=== PATIENT | male | born 1960 | race Caucasian/White ===

== ENCOUNTER 2018-10-27 19:25 | Observation (INO) | payer BC ==
[2018-10-27 20:28] VITALS: RESP 18
[2018-10-27 21:21] LABS: Basophils % (A) 0 %; Eosinophils # (A) 0.2 k/uL (0-0.7); Eosinophils % (A) 2 %; HCT 49.8 % (39.0-53.0); HGB 16.8 gm/dL (13.0-17.5); Lymphocytes % (A) 19 %; MCH 31.6 pg (25.0-35.0); MCHC 33.8 g/dL (31.0-37.0); MCV 93.7 fL (80.0-100.0); Mean Platelet Volume 6.5; Monocytes # (A) 0.7 k/uL (0-1.0); Monocytes % (A) 6 %; Neutrophils # (A) 7.4 k/uL (1.3-7.7); Neutrophils % (A) 70 %; Platelet Count 227 k/uL (150-450); RBC 5.32 m/uL (4.30-5.90); RDW 12.6 % (11.5-15.5); WBC 10.5 k/uL (3.8-10.6)
[2018-10-27 21:30] LABS: Appearance,Urine Clear (Clear); Bilirubin,Urine Negative (Negative); Blood,Urine Negative (Negative); Color,Urine Yellow; Glucose,Urine (UA) Negative (Negative); Ketones,Urine Trace (Negative); Leukocyte Esterase,Urine Negative (Negative); Nitrite,Urine Negative (Negative); PH, Urine 5.5 (5.0-8.0); Protein,Urine Trace (Negative); Specific Gravity,Urine 1.021 (1.001-1.035); Urobilinogen,Urine <2.0 mg/dL (<2.0)
[2018-10-27 21:31] LABS: ALT 18 U/L (21-72); AST 22 U/L (17-59); Albumin 4.3 g/dL (3.5-5.0); Alkaline Phosphatase 75 U/L (38-126); Anion Gap 10 mmol/L; Blood Urea Nitrogen 13 mg/dL (9-20); Calcium 9.7 mg/dL (8.4-10.2); Carbon Dioxide 23 mmol/L (22-30); Chloride 105 mmol/L (98-107); Glucose 114 mg/dL (74-99); Potassium 4.2 mmol/L (3.5-5.1); Sodium 138 mmol/L (137-145); Total Bilirubin 1.2 mg/dL (0.2-1.3); Total Protein 7.9 g/dL (6.3-8.2)
[2018-10-27] MEDS ORDERED: MORPHINE SULFATE 4 MG/ML SYRINGE IV STA (21:53)
[2018-10-27] MEDS ORDERED: KETOROLAC 30 MG/ML 1 ML VIAL IVP STA (21:53)
[2018-10-27] MEDS ORDERED: HYDROmorphone 1 MG/ML 1 ML SYRINGE IVP STA ×2 (22:25→23:58)
--- NOTE | 2018-10-27 22:29 | ED ---
Abdominal Pain HPI - General Chief Complaint: Abdominal Pain Stated Complaint: Lt kidney area pain Time Seen by Provider: 10/27/18 21:51 Source: patient, family Mode of arrival: ambulatory Limitations: no limitations - History of Present Illness Initial Comments: This patient is a 57-year-old man complains of left flank pain that woke him from sleep early this morning. States it feels "like someone is sticking a knife and then twisting it." Pain is constant, severe, and gets worse when he moves. He has not noted relieving factors other than remaining still. No nausea or vomiting. No change in bowel movements. No change in urination. Occasionally the pain feels like it goes toward his left testicle. MD Complaint: flank pain Onset/Timin -: hour(s) Location: L flank Radiation: other (groin) Migration to: no migration Severity: severe Quality: stabbing Consistency: constant Improves With: nothing Worsens With: movement Associated Symptoms: denies other symptoms - Related Data Home Medications Medication Instructions Recorded Confirmed Acetaminophen [Tylenol Extra 1,000 - 1,500 mg PO Q6H PRN 10/27/18 10/27/18 Strength] Previous Rx's Medication Instructions Recorded Ibuprofen [Motrin] 400 mg PO Q6HR PRN #30 tab 10/28/18 Ranitidine HCl [Zantac] 150 mg PO BID #60 tab 10/28/18 Allergies Allergy/AdvReac Type Severity Reaction Status Date / Time Penicillins Allergy Swelling Verified 10/27/18 20:50 Review of Systems ROS Statement: Those systems with pertinent positive or pertinent negative responses have been documented in the HPI. ROS Other: All systems not noted in ROS Statement are negative. Constitutional: Denies: fever, chills, weakness Respiratory: Denies: cough, dyspnea Cardiovascular: Denies: chest pain, palpitations, edema Gastrointestinal: Reports: as per HPI, abdominal pain (Left flank). Denies: vomiting, diarrhea, constipation, melena, hematochezia Genitourinary: Denies: dysuria, hematuria Musculoskeletal: Denies: back pain Skin: Denies: rash Neurological: Denies: headache, weakness, numbness Past Medical History Past Medical History: No Reported History History of Any Multi-Drug Resistant Organisms: None Reported Past Surgical History: No Surgical Hx Reported Past Psychological History: No Psychological Hx Reported Smoking Status: Current every day smoker Past Alcohol Use History: Daily Past Drug Use History: Marijuana General Exam Limitations: no limitations General appearance: alert, in no apparent distress Head exam: Present: atraumatic, normocephalic Eye exam: Present: normal appearance. Absent: scleral icterus, conjunctival injection ENT exam: Present: normal oropharynx Respiratory exam: Present: normal lung sounds bilaterally. Absent: respiratory distress, wheezes, rales, rhonchi, stridor Cardiovascular Exam: Present: regular rate, normal rhythm, normal heart sounds, other (Pedal pulses are symmetric and normal in strength.). Absent: systolic murmur, diastolic murmur, rubs, gallop GI/Abdominal exam: Present: soft, normal bowel sounds. Absent: distended, tenderness, guarding, rebound, rigid, mass, pulsatile mass, hernia Extremities exam: Present: normal inspection, normal capillary refill. Absent: pedal edema, calf tenderness Back exam: Present: normal inspection, tenderness, paraspinal tenderness, other (The patient does have tenderness that reproduces the pain in the left paraspinal area at the costal margin.). Absent: CVA tenderness (R), CVA tenderness (L) Neurological exam: Present: alert, reflexes normal. Absent: motor sensory deficit Skin exam: Present: warm, dry, intact, normal color. Absent: rash Course Vital Signs 10/27/18 10/27/18 10/28/18 20:22 23:56 01:10 Temperature 97.5 F L 97.6 F Pulse Rate 85 67 Pulse Rate [ 67 Pulse Oximetery ] Respiratory 18 18 18 Rate Blood Pressure 127/86 130/77 Blood Pressure 125/68 [Right Arm] O2 Sat by Pulse 99 97 95 Oximetry 10/28/18 01:16 Temperature 97.8 F Pulse Rate 68 Pulse Rate [ Pulse Oximetery ] Respiratory 18 Rate Blood Pressure 128/64 Blood Pressure [Right Arm] O2 Sat by Pulse 96 Oximetry Medical Decision Making - Medical Decision Making Patient's 58-year-old man with severe left flank pain. Given the abnormal kidney finding will have patient admitted with nephrology consult but this does not appear to be related to patient's pain which I suspect is musculoskeletal. - Lab Data Result diagrams: 10/27/18 20:40 10/27/18 20:40 Lab Results 10/27/18 10/27/18 10/27/18 Range/Units 20:40 20:40 21:10 WBC 10.5 (3.8-10.6) k/uL RBC 5.32 (4.30-5.90) m/uL Hgb 16.8 (13.0-17.5) gm/dL Hct 49.8 (39.0-53.0) % MCV 93.7 (80.0-100.0) fL MCH 31.6 (25.0-35.0) pg MCHC 33.8 (31.0-37.0) g/dL RDW 12.6 (11.5-15.5) % Plt Count 227 (150-450) k/uL Neutrophils % 70 % Lymphocytes % 19 % Monocytes % 6 % Eosinophils % 2 % Basophils % 0 % Neutrophils # 7.4 (1.3-7.7) k/uL Lymphocytes # 2.0 (1.0-4.8) k/uL Monocytes # 0.7 (0-1.0) k/uL Eosinophils # 0.2 (0-0.7) k/uL Basophils # 0.0 (0-0.2) k/uL Sodium 138 (137-145) mmol/L Potassium 4.2 (3.5-5.1) mmol/L Chloride 105 (98-107) mmol/L Carbon Dioxide 23 (22-30) mmol/L Anion Gap 10 mmol/L BUN 13 (9-20) mg/dL Creatinine 0.87 (0.66-1.25) mg/dL Est GFR (CKD-EPI)AfAm >90 (>60 ml/min/1.73 sqM) Est GFR (CKD-EPI)NonAf >90 (>60 ml/min/1.73 sqM) Glucose 114 H (74-99) mg/dL Calcium 9.7 (8.4-10.2) mg/dL Total Bilirubin 1.2 (0.2-1.3) mg/dL AST 22 (17-59) U/L ALT 18 L (21-72) U/L Alkaline Phosphatase 75 (38-126) U/L Total Protein 7.9 (6.3-8.2) g/dL Albumin 4.3 (3.5-5.0) g/dL Urine Color Yellow Urine Appearance Clear (Clear) Urine pH 5.5 (5.0-8.0) Ur Specific Jewett 1.021 (1.001-1.035) Urine Protein Trace H (Negative) Urine Glucose (UA) Negative (Negative) Urine Ketones Trace H (Negative) Urine Blood Negative (Negative) Urine Nitrite Negative (Negative) Urine Bilirubin Negative (Negative) Urine Urobilinogen <2.0 (<2.0) mg/dL Ur Leukocyte Esterase Negative (Negative) Disposition Clinical Impression: Low back pain Disposition: ADMITTED IP TO THIS HOSP Condition: Good
--- NOTE | 2018-10-27 23:05 | CT ---
EXAMINATION TYPE: CT abdomen pelvis wo con DATE OF EXAM: 10/27/2018 COMPARISON: None HISTORY: left flank pain CT DLP: 389 mGycm Automated exposure control for dose reduction was used. TECHNIQUE: Helical acquisition of images was performed from the lung bases through the pelvis. FINDINGS: There is mild pulmonary emphysema. There is some interstitial reticular density at the right posterio r lung base. Heart size is normal. There is no pericardial effusion. Liver and gallbladder appear normal. Bile ducts are not dilated. Spleen appears normal. There is no p ancreatic mass. There is no adrenal mass. Right kidney shows normal size and contour. There is no hydronephrosis. Lef t kidney is absent. Bladder distends smoothly. There is no inguinal hernia. There is no free fluid in the pelvis. I see no intestinal wall thickening. The appendix appears normal. There is no sign of a bowel obstruction. There is no evidence of free air. There is no ascites. There is no mesenteric debby a. There is 25% compression fracture of T12 that appears old. I see no focal bone destruction. There is also similar 20% wedging of T10. Bony pelvis is intact. IMPRESSION: NORMAL APPENDIX. ABSENT LEFT KIDNEY. I DO NOT SEE A CAUSE FOR LEFT FLANK PAIN.
[2018-10-28] MEDS ORDERED: ACETAMINOPHEN TAB 325 MG TAB PO PRN
[2018-10-28] MEDS ORDERED: NALOXONE 0.4 MG/ML 1 ML VIAL IV PRN
[2018-10-28] MEDS ORDERED: SODIUM CHLORIDE 0.9% 1,000 ML IV SCH
--- NOTE | 2018-10-28 01:37 | US ---
EXAMINATION TYPE: US kidneys/renal and bladder DATE OF EXAM: 10/28/2018 COMPARISON: NONE CLINICAL HISTORY: Pain. LLQ pain EXAM MEASUREMENTS: Right Kidney: 9.8 x 4.3 x 3.2 cm Left Kidney: No left kidney seen. Right Kidney: Hyperechoic sinus seen. Left Kidney: No left kidney seen. Bladder: Anechoic Bilateral Jets seen: No There is no evidence for hydronephrosis at this point in time. No nephrolithiasis is seen. The urin ruben bladder is anechoic. Appears to be a right pelvic kidney also visualized measuring 7.6 x 3.0 x 2.6cm. Solid mass seen uppe r pole 4.4 x 5.3 x 3.0cm. IMPRESSION: Right kidney appears normal. There is an additional kidney on the right side in the pelvi s consistent with crossed ectopia. The area attributed to a mass I think is renal normal parenchymal of the ectopic kidney in the upper pole. This could be confirmed with contrast CT scan if clinically indicated. No evidence of renal obstruction.
[2018-10-28 01:41] VITALS: BMI 23.5
[2018-10-28] MEDS: HYDROcodone/APAP 5-325MG 1 EACH TAB PO PRN ×3 (01:54→11:05)
[2018-10-28] MEDS: HYDROmorphone 1 MG/ML 1 ML SYRINGE IVP PRN ×3 (02:46→09:46)
[2018-10-28 07:57] VITALS: BP 134/81; PULSE 61; TEMP 97.5
--- NOTE | 2018-10-28 09:22 | P.NPCON ---
History of Present Illness - History of Present Illness Reason for consultation: Absent left kidney History of present illness: Patient is a 58-year-old male seen in renal consultation for absent left kidney. Patient presented to the hospital with lower back pain which he describes as sharp and stabbing in nature. Patient states it began suddenly at 3 in the morning. Patient had an abdominal ultrasound done which revealed an absent left kidney. Right kidney appeared normal in size without any evidence of hydronephrosis. There was an additional kidney on the right side in the pelvis consistent with crossed ectopia. Patient denies any history of kidney disease. No vomiting or diarrhea. Denies chest pain or shortness of breath. No problems urinating. No hematuria or dysuria. Hemodynamically stable. Denies family history of renal disease. Vital signs are stable. General: The patient appeared well nourished and normally developed. HEENT: Head exam is unremarkable. Neck is without jugular venous distension. LUNGS: Lungs are clear to auscultation and percussion. Breath sounds decreased. HEART: Rate and Rhythm are regular. First and second heart sounds normal. No murmurs, rubs or gallops. ABDOMEN: Abdominal exam reveals normal bowel sounds. Non-tender and non- distended. No evidence of peritonitis. EXTREMITITES: No clubbing, cyanosis, or edema. Past Medical History Past Medical History: No Reported History History of Any Multi-Drug Resistant Organisms: None Reported Past Surgical History: Adenoidectomy, Hernia Repair, Tonsillectomy Past Anesthesia/Blood Transfusion Reactions: No Reported Reaction Past Psychological History: No Psychological Hx Reported Smoking Status: Current every day smoker Past Alcohol Use History: Daily Past Drug Use History: Marijuana Medications and Allergies Home Medications Medication Instructions Recorded Confirmed Type Acetaminophen [Tylenol Extra 1,000 - 1,500 mg PO Q6H PRN 10/27/18 10/27/18 History Strength] Allergies Allergy/AdvReac Type Severity Reaction Status Date / Time Penicillins Allergy Swelling Verified 10/27/18 20:50 Physical Exam Vitals: Vital Signs Temp Pulse Pulse Resp BP BP Pulse Ox 10/28/18 07:35 97.5 F L 61 18 134/81 94 L 10/28/18 04:00 67 18 10/28/18 01:16 97.8 F 68 18 128/64 96 10/28/18 01:10 97.6 F 67 18 125/68 95 10/27/18 23:56 67 18 130/77 97 10/27/18 20:22 97.5 F L 85 18 127/86 99 Intake and Output 10/27/18 10/28/18 10/28/18 22:59 06:59 14:59 Intake Total 400 360 Balance 400 360 Intake: Oral 400 360 Other: Weight 68.039 kg 68.039 kg Results - Lab Results Most recent lab results Calcium 9.7 mg/dL (8.4-10.2) 10/27/18 20:40 10/27/18 20:40 10/27/18 20:40 Assessment and Plan Plan: Assessment: 1. 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 GFR at baseline. No evidence of obstruction. 2. Low back pain. Appears to be musculoskeletal in nature. No evidence of kidney stones noted on imaging. No evidence of UTI. Plan: Pain control. Cleared for discharge once pain better controlled. Thank you for the consultation. I will continue to follow patient with you during his hospital stay.
[2018-10-28] MEDS: FAMOTIDINE 20 MG TAB PO SCH ×2 (09:47→11:07)
[2018-10-28 11:15] LABS: Appearance,Urine Clear (Clear); Bilirubin,Urine Negative (Negative); Blood,Urine Negative (Negative); Color,Urine Yellow; Glucose,Urine (UA) Negative (Negative); Ketones,Urine Negative (Negative); Leukocyte Esterase,Urine Negative (Negative); Nitrite,Urine Negative (Negative); Protein,Urine Negative (Negative); Urobilinogen,Urine <2.0 mg/dL (<2.0)
--- NOTE | 2018-10-28 14:12 | P.HPIM ---
History of Present Illness 58-year-old male seen in renal consultation for absent left kidney. Patient presented to the hospital with lower back pain which he describes as sharp and stabbing in nature. Patient states it began suddenly at 3 in the morning. Patient had an abdominal ultrasound done which revealed an absent left kidney. Right kidney appeared normal in size without any evidence of hydronephrosis. There was an additional kidney on the right side in the pelvis consistent with crossed ectopia. Patient denies any history of kidney disease. No vomiting or diarrhea. Denies chest pain or shortness of breath. No problems urinating. No hematuria or dysuria. Hemodynamically stable. Denies family history of renal disease.patient doesn't have any tingling and numbness in and bilateral lower limbs patient is ablating without any help. Patient may have musculoskeletal pain in the lower back patient does have some old compression fractures in the thoracic vertebrae. Review of Systems REVIEW OF SYSTEMS: CONSTITUTIONAL: No fever, no malaise, no fatigue. HEENT: No recent visual problems or hearing problems. Denied any sore throat. CARDIOVASCULAR: No chest pain, orthopnea, PND, no palpitations, no syncope. PULMONARY: No shortness of breath, no cough, no hemoptysis. GASTROINTESTINAL: No diarrhea, no nausea, no vomiting, no abdominal pain. NEUROLOGICAL: No headaches, no weakness, no numbness. HEMATOLOGICAL: Denies any bleeding or petechiae. GENITOURINARY: Denies any burning micturition, frequency, or urgency. MUSCULOSKELETAL/RHEUMATOLOGICAL: back pain and muscle spasm as mentioned above ENDOCRINE: Denies any polyuria or polydipsia. The rest of the 14-point review of systems is negative. Past Medical History Past Medical History: No Reported History History of Any Multi-Drug Resistant Organisms: None Reported Past Surgical History: Adenoidectomy, Hernia Repair, Tonsillectomy Past Anesthesia/Blood Transfusion Reactions: No Reported Reaction Past Psychological History: No Psychological Hx Reported Smoking Status: Current every day smoker Past Alcohol Use History: Daily Past Drug Use History: Marijuana Medications and Allergies Home Medications Medication Instructions Recorded Confirmed Type Acetaminophen [Tylenol Extra 1,000 - 1,500 mg PO Q6H PRN 10/27/18 10/27/18 History Strength] Ibuprofen [Motrin] 400 mg PO Q6HR PRN #30 tab 10/28/18 Rx Ranitidine HCl [Zantac] 150 mg PO BID #60 tab 10/28/18 Rx Allergies Allergy/AdvReac Type Severity Reaction Status Date / Time Penicillins Allergy Swelling Verified 10/27/18 20:50 Physical Exam Vitals: Vital Signs Temp Pulse Pulse Resp BP BP Pulse Ox 10/28/18 07:35 97.5 F L 61 18 134/81 94 L 10/28/18 04:00 67 18 10/28/18 01:16 97.8 F 68 18 128/64 96 10/28/18 01:10 97.6 F 67 18 125/68 95 10/27/18 23:56 67 18 130/77 97 10/27/18 20:22 97.5 F L 85 18 127/86 99 Intake and Output 10/27/18 10/28/18 10/28/18 22:59 06:59 14:59 Intake Total 400 560 Balance 400 560 Intake: Oral 400 560 Other: Weight 68.039 kg 68.039 kg PHYSICAL EXAMINATION: GENERAL: The patient is alert and oriented x3, not in any acute distress. Well developed, well nourished. HEENT: Pupils are round and equally reacting to light. EOMI. No scleral icterus. No conjunctival pallor. Normocephalic, atraumatic. No pharyngeal erythema. No thyromegaly. CARDIOVASCULAR: S1 and S2 present. No murmurs, rubs, or gallops. PULMONARY: Chest is clear to auscultation, no wheezing or crackles. ABDOMEN: Soft, nontender, nondistended, normoactive bowel sounds. No palpable organomegaly. MUSCULOSKELETAL: No joint swelling or deformity. EXTREMITIES: No cyanosis, clubbing, or pedal edema. NEUROLOGICAL: Gross neurological examination did not reveal any focal deficits. SKIN: No rashes. Results CBC & Chem 7: 10/27/18 20:40 10/27/18 20:40 Labs: Abnormal Lab Results - Last 24 Hours (Table) 10/27/18 10/27/18 Range/Units 20:40 21:10 Glucose 114 H (74-99) mg/dL ALT 18 L (21-72) U/L Urine Protein Trace H (Negative) Urine Ketones Trace H (Negative) Thrombosis Risk Factor Assmnt - Choose All That Apply Any of the Below Risk Factors Present?: Yes Each Factor Represents 1 point: Age 41-60 years Other Risk Factors: No Other congenital or acquired thrombophilia - If yes, enter type in comment: No Thrombosis Risk Factor Assessment Total Risk Factor Score: 1 Thrombosis Risk Factor Assessment Level: Low Risk Assessment and Plan Plan: -right paraspinal, lumbar pain: Patient probably has chronic low back pain which is bit worse with muscle spasm patient was asked to use ice packs and nonsteroidal anti-inflammatories. Patient does not have any urinary tract infection or pyelonephritis at this time patient probably has musculoskeletal pain patient does not have any red flag signs of back pain. Patient will be referred to PCP patient will follow-up with PCP for some low as an outpatient.CAT scan of the abdomen pelvis did not show any significant abnormalitydata ultrasound kidney showed caused ectopia. Patient will be given prescription for ibuprofen and GI prophylaxis. -caused ectopia of the kidneys both his kidneys on the right side. No further intervention is necessary at this time
--- NOTE | 2018-10-28 14:13 | P.DS ---
Providers Date of admission: 10/28/18 00:01 Attending physician: Deshawn Almaguer MD Consults: 10/28/18 00:01 Consult Physician Routine Consulting Provider: Daniela Chatman Consult Reason/Comments: absent left kidney Do you want consulting provider notified?: Yes Primary care physician: Stated None Hospital Course: please refer to my HPI Patient Condition at Discharge: Good Plan - Discharge Summary Discharge Rx Participant: Yes New Discharge Prescriptions: New Ibuprofen [Motrin] 400 mg PO Q6HR PRN #30 tab PRN Reason: Pain Ranitidine HCl [Zantac] 150 mg PO BID #60 tab No Action Acetaminophen [Tylenol Extra Strength] 1,000 - 1,500 mg PO Q6H PRN PRN Reason: Pain Discharge Medication List Acetaminophen [Tylenol Extra Strength] 1,000 - 1,500 mg PO Q6H PRN 10/27/18 [ History] Ibuprofen [Motrin] 400 mg PO Q6HR PRN #30 tab 10/28/18 [Rx] Ranitidine HCl [Zantac] 150 mg PO BID #60 tab 10/28/18 [Rx] Follow up Appointment(s)/Referral(s): Rafael Pardo DO [REFERRING] - 1 Week (OFFICE CLOSED, PLEASE CALL FOR APPOINTMENT. NEED A PRIMARY CARE PHYSICIAN AND HOSPITAL FOLLOW UP APPOINTMENT) None,Stated [Primary Care Provider] - 1-2 days Discharge Disposition: HOME SELF-CARE
== END 2018-10-28 13:45 | disposition home or self-care (01) ==
LOC: EC 19:25 → 1SOBS 10-28 00:01
PROVIDERS: ADMIT Internal Medicine; ATTEND Internal Medicine
DX: M54.5 Low back pain (principal); F17.200 Nicotine dependence, unspecified, uncomplicated; Z71.6 Tobacco abuse counseling; Q63.2 Ectopic kidney; Z79.899 Other long term (current) drug therapy; Z88.0 Allergy status to penicillin; Z90.49 Acquired absence of other specified parts of digestive tract
CPT/HCPCS: 96376 ×2; 96374; 96375; 99285; 36415; 80053; 85025; 81003 ×2; 87086; 76770; 74176; G0378; J2270; J1885; J1170 ×2

== ENCOUNTER 2019-08-25 19:44 | Inpatient (IN) | payer BC ==
[2019-08-25] MEDS ORDERED: MORPHINE SULFATE 4 MG/ML SYRINGE IV STA (20:34)
[2019-08-25] MEDS ORDERED: KETOROLAC 30 MG/ML 1 ML VIAL IVP STA (20:34)
[2019-08-25] MEDS ORDERED: SODIUM CHLORIDE 0.9% 1,000 ML IV STA (20:34)
[2019-08-25] MEDS ORDERED: ONDANSETRON 4 MG/2 ML VIAL IVP STA (20:34)
[2019-08-25 21:16] LABS: Basophils # (A) 0.1 k/uL (0-0.2); Basophils % (A) 0 %; Eosinophils # (A) 0.1 k/uL (0-0.7); Eosinophils % (A) 1 %; HCT 48.6 % (39.0-53.0); HGB 15.4 gm/dL (13.0-17.5); Lymphocytes % (A) 9 %; MCHC 31.6 g/dL (31.0-37.0); MCV 94.9 fL (80.0-100.0); Mean Platelet Volume 6.3; Monocytes # (A) 0.5 k/uL (0-1.0); Monocytes % (A) 4 %; Neutrophils # (A) 10.1 k/uL (1.3-7.7); Neutrophils % (A) 84 %; Platelet Count 236 k/uL (150-450); RBC 5.12 m/uL (4.30-5.90); RDW 12.3 % (11.5-15.5)
[2019-08-25 21:28] LABS: ALT 23 U/L (21-72); AST 24 U/L (17-59); African American GFR (CKD) >90 (>60 ml/min/1.73 sqM); Albumin 4.4 g/dL (3.5-5.0); Alkaline Phosphatase 81 U/L (38-126); Amylase 54 U/L (30-110); Anion Gap 9 mmol/L; Blood Urea Nitrogen 10 mg/dL (9-20); Calcium 9.9 mg/dL (8.4-10.2); Carbon Dioxide 24 mmol/L (22-30); Chloride 106 mmol/L (98-107); Glucose 122 mg/dL (74-99); Potassium 4.1 mmol/L (3.5-5.1); Sodium 139 mmol/L (137-145); Total Bilirubin 0.9 mg/dL (0.2-1.3); Total Protein 7.8 g/dL (6.3-8.2)
[2019-08-25 21:33] LABS: INR 0.9 (<1.2); Partial Thromboplastin Time 26.5 sec (22.0-30.0); Prothrombin Time 9.6 sec (9.0-12.0)
--- NOTE | 2019-08-25 21:39 | ED ---
Abdominal Pain HPI <RosauraAiden - Last Filed: 08/25/19 22:34> - General Source: patient, family Mode of arrival: ambulatory Limitations: no limitations <Dorothy Waterman - Last Filed: 08/26/19 01:10> - General Chief Complaint: Abdominal Pain Stated Complaint: Abd Pain Time Seen by Provider: 08/25/19 20:16 - History of Present Illness Initial Comments: Patient is a 58-year-old male presenting to the emergency Department with complaints of right sided abdominal pain that started suddenly approximately 4 hours prior to arrival. Patient's is also complaining of nausea. Patient states the pain is in his lower right abdomen and also is extending into his right low back. Patient denies fever, chills, diarrhea. Patient denies previous history of abdominal surgeries. Patient takes no medications. Patient's last bowel movement this morning. Patient states the pain as sharp and rates it a 10/10. patient denies history of kidney stones. Patient denies any urinary complaints at this time. No other complaints at this time. Upon arrival to ER vital signs are stable. (Dorothy Waterman) - Related Data Home Medications Medication Instructions Recorded Confirmed No Known Home Medications 08/25/19 08/25/19 Allergies Allergy/AdvReac Type Severity Reaction Status Date / Time Penicillins Allergy Anaphylaxis Verified 08/25/19 22:55 Review of Systems ROS Other: All systems not noted in ROS Statement are negative. <Aiden Kaplan - Last Filed: 08/25/19 22:34> ROS Other: All systems not noted in ROS Statement are negative. <Dorothy Waterman - Last Filed: 08/26/19 01:10> ROS Statement: Those systems with pertinent positive or pertinent negative responses have been documented in the HPI. Past Medical History Past Medical History: No Reported History History of Any Multi-Drug Resistant Organisms: None Reported Past Surgical History: Hernia Repair Past Anesthesia/Blood Transfusion Reactions: No Reported Reaction Past Psychological History: No Psychological Hx Reported Smoking Status: Current every day smoker Past Alcohol Use History: Daily Past Drug Use History: Marijuana <Dorothy Waterman - Last Filed: 08/26/19 01:10> General Exam Limitations: no limitations <Dorothy Waterman - Last Filed: 08/26/19 01:10> - General Exam Comments Initial Comments: GENERAL: Well-nourished, appears in mild distress secondary to abdominal pain, is laying in a position on the bed. HEAD: Atraumatic, normocephalic. EYES: Pupils equal round and reactive to light, extraocular movements intact, sclera anicteric, conjunctiva are normal. ENT: Nares patent. Moist mucous membranes. NECK: Normal range of motion, supple without lymphadenopathy or JVD. LUNGS: Breath sounds clear to auscultation bilaterally and equal. No wheezes rales or rhonchi. HEART: Regular rate and rhythm without murmurs, rubs or gallops. ABDOMEN: tender to palpation of right lower quadrant as well as right side abdomen. Guarding present. Soft, Normoactive bowel sounds. No masses appreciated. : Deferred EXTREMITIES: Normal range of motion, no pitting or edema. No clubbing or cyanosis. NEUROLOGICAL: Cranial nerves II through XII grossly intact. Normal speech, normal gait. PSYCH: Normal mood, normal affect. SKIN: Warm, Dry, normal turgor, no rashes or lesions noted. (Dorothy Waterman) Course Vital Signs 08/25/19 20:11 Temperature 98.7 F Pulse Rate 74 Respiratory 22 Rate Blood Pressure 144/87 O2 Sat by Pulse 96 Oximetry Medical Decision Making - Lab Data Result diagrams: 08/25/19 21:00 08/25/19 21:00 <Aiden Kaplan - Last Filed: 08/25/19 22:34> - Lab Data Result diagrams: 08/25/19 21:00 08/25/19 21:00 <Dorothy Waterman - Last Filed: 08/26/19 01:10> - Medical Decision Making I saw this patient in conjunction with the physician autopsy assistant. I performed independent history and physical exam. Agree with case management. (Aiden Kaplan) Patient is a 58-year-old male presenting with right lower quadrant pain with sudden onset today. Patient has associated nausea. Vital signs are stable at this time. CBC shows white count of 12. Coags are normal. CMP is normal. Lactic acid is 1.2. UA is normal. CT of the abdomen showed it a dilated fluid- filled appendix suggestive of appendicitis. No abscess. Dilated appendix is a change compared to old exam. Case was discussed with Dr. Kaplan. Dr. Mahmood was contacted and will admit the patient for surgery in the morning. Patient will continue with fluids, pain control, antibiotics. (Dorothy Waterman) - Lab Data Lab Results 08/25/19 08/25/19 08/25/19 Range/Units 21:00 21:00 21:00 WBC 12.0 H (3.8-10.6) k/uL RBC 5.12 (4.30-5.90) m/uL Hgb 15.4 (13.0-17.5) gm/dL Hct 48.6 (39.0-53.0) % MCV 94.9 (80.0-100.0) fL MCH 30.0 (25.0-35.0) pg MCHC 31.6 (31.0-37.0) g/dL RDW 12.3 (11.5-15.5) % Plt Count 236 (150-450) k/uL Neutrophils % 84 % Lymphocytes % 9 % Monocytes % 4 % Eosinophils % 1 % Basophils % 0 % Neutrophils # 10.1 H (1.3-7.7) k/uL Lymphocytes # 1.0 (1.0-4.8) k/uL Monocytes # 0.5 (0-1.0) k/uL Eosinophils # 0.1 (0-0.7) k/uL Basophils # 0.1 (0-0.2) k/uL PT 9.6 (9.0-12.0) sec INR 0.9 (<1.2) APTT 26.5 (22.0-30.0) sec Sodium 139 (137-145) mmol/L Potassium 4.1 (3.5-5.1) mmol/L Chloride 106 (98-107) mmol/L Carbon Dioxide 24 (22-30) mmol/L Anion Gap 9 mmol/L BUN 10 (9-20) mg/dL Creatinine 0.87 (0.66-1.25) mg/dL Est GFR (CKD-EPI)AfAm >90 (>60 ml/min/1.73 sqM) Est GFR (CKD-EPI)NonAf >90 (>60 ml/min/1.73 sqM) Glucose 122 H (74-99) mg/dL Plasma Lactic Acid Hector (0.7-2.0) mmol/L Calcium 9.9 (8.4-10.2) mg/dL Total Bilirubin 0.9 (0.2-1.3) mg/dL AST 24 (17-59) U/L ALT 23 (21-72) U/L Alkaline Phosphatase 81 (38-126) U/L Total Protein 7.8 (6.3-8.2) g/dL Albumin 4.4 (3.5-5.0) g/dL Amylase 54 (30-110) U/L Lipase 39 (23-300) U/L Urine Color Urine Appearance (Clear) Urine pH (5.0-8.0) Ur Specific [place] (1.001-1.035) Urine Protein (Negative) Urine Glucose (UA) (Negative) Urine Ketones (Negative) Urine Blood (Negative) Urine Nitrite (Negative) Urine Bilirubin (Negative) Urine Urobilinogen (<2.0) mg/dL Ur Leukocyte Esterase (Negative) 08/25/19 08/25/19 Range/Units 21:00 22:10 WBC (3.8-10.6) k/uL RBC (4.30-5.90) m/uL Hgb (13.0-17.5) gm/dL Hct (39.0-53.0) % MCV (80.0-100.0) fL MCH (25.0-35.0) pg MCHC (31.0-37.0) g/dL RDW (11.5-15.5) % Plt Count (150-450) k/uL Neutrophils % % Lymphocytes % % Monocytes % % Eosinophils % % Basophils % % Neutrophils # (1.3-7.7) k/uL Lymphocytes # (1.0-4.8) k/uL Monocytes # (0-1.0) k/uL Eosinophils # (0-0.7) k/uL Basophils # (0-0.2) k/uL PT (9.0-12.0) sec INR (<1.2) APTT (22.0-30.0) sec Sodium (137-145) mmol/L Potassium (3.5-5.1) mmol/L Chloride (98-107) mmol/L Carbon Dioxide (22-30) mmol/L Anion Gap mmol/L BUN (9-20) mg/dL Creatinine (0.66-1.25) mg/dL Est GFR (CKD-EPI)AfAm (>60 ml/min/1.73 sqM) Est GFR (CKD-EPI)NonAf (>60 ml/min/1.73 sqM) Glucose (74-99) mg/dL Plasma Lactic Acid Hector 1.2 (0.7-2.0) mmol/L Calcium (8.4-10.2) mg/dL Total Bilirubin (0.2-1.3) mg/dL AST (17-59) U/L ALT (21-72) U/L Alkaline Phosphatase (38-126) U/L Total Protein (6.3-8.2) g/dL Albumin (3.5-5.0) g/dL Amylase (30-110) U/L Lipase (23-300) U/L Urine Color Yellow Urine Appearance Clear (Clear) Urine pH 5.5 (5.0-8.0) Ur Specific [place] 1.041 H (1.001-1.035) Urine Protein Negative (Negative) Urine Glucose (UA) Negative (Negative) Urine Ketones Negative (Negative) Urine Blood Negative (Negative) Urine Nitrite Negative (Negative) Urine Bilirubin Negative (Negative) Urine Urobilinogen <2.0 (<2.0) mg/dL Ur Leukocyte Esterase Negative (Negative) Disposition <Aiden Kapaln - Last Filed: 08/25/19 22:34> Is patient prescribed a controlled substance at d/c from ED?: No Decision Date: 08/25/19 Decision Time: 22:40 <Dorothy Waterman - Last Filed: 08/26/19 01:10> Clinical Impression: Acute appendicitis Disposition: ADMITTED IP TO THIS HOSP Condition: Stable
[2019-08-25] MEDS ORDERED: MORPHINE SULFATE 2 MG/ML SYRINGE IVP ONE (21:57)
--- NOTE | 2019-08-25 22:01 | CT ---
EXAMINATION TYPE: CT abdomen pelvis w con DATE OF EXAM: 08/25/2019 COMPARISON: 10/27/2018 HISTORY: Right sided abdominal pain CT DLP: 756.6 mGycm Automated exposure control for dose reduction was used. TECHNIQUE: Helical acquisition of images was performed from the lung bases through the pelvis. CONTRAST: Performed without Oral Contrast and with IV Contrast, patient injected with 100 mL of Isovue 300. FINDINGS: Multiple axial sections were obtained from the diaphragm to the floor the pelvis with intravenous con trast. Lung bases are clear. There is no pleural effusion. Heart size is normal. Liver spleen pancreas gallbladder appear normal. Bile ducts are not dilated. There is no adrenal mass . 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 Right kidney shows n o hydronephrosis. Ureters not dilated. There is no evidence of a renal mass. Bladder distends smoothly. There is no inguinal hernia. There is no free fluid in the pelvis. There is no evidence of a bowel obstruction. There is no mesenteric edema. There is mildly dilated fl uid-filled appendix measures up to 10 mm. Lumbar vertebra have normal alignment. There is 15% anterio r wedging of T12. Bony pelvis is intact. IMPRESSION: THERE IS ECTOPIC LEFT KIDNEY. NO EVIDENCE OF RENAL OBSTRUCTION. THERE IS DILATED FLUID-FILLED APPENDIX SUGGESTIVE OF APPENDICITIS. NO ABSCESS. DILATED APPENDIX IS A CHANGE COMPARED TO OLD EXAM.
[2019-08-25 22:24] LABS: Appearance,Urine Clear (Clear); Bilirubin,Urine Negative (Negative); Blood,Urine Negative (Negative); Color,Urine Yellow; Glucose,Urine (UA) Negative (Negative); Ketones,Urine Negative (Negative); Leukocyte Esterase,Urine Negative (Negative); Nitrite,Urine Negative (Negative); PH, Urine 5.5 (5.0-8.0); Protein,Urine Negative (Negative); Specific Gravity,Urine 1.041 (1.001-1.035); Urobilinogen,Urine <2.0 mg/dL (<2.0)
[2019-08-25] MEDS ORDERED: ACETAMINOPHEN TAB 325 MG TAB PO PRN (22:32)
[2019-08-25] MEDS ORDERED: traMADol 50 MG TAB PO PRN (22:32)
[2019-08-25] MEDS ORDERED: MORPHINE SULFATE 4 MG/ML SYRINGE IV PRN (22:32)
[2019-08-25] MEDS ORDERED: NALOXONE 0.4 MG/ML 1 ML VIAL IV PRN (22:32)
[2019-08-25] MEDS ORDERED: ONDANSETRON 4 MG/2 ML VIAL IVP PRN (22:32)
[2019-08-25] MEDS: SODIUM CHLORIDE 0.9% 1,000 ML IV SCH (23:10)
[2019-08-25] MEDS ORDERED: LEVOFLOXACIN 750MG-D5W PMX 750 MG in DEXTROSE/WATER 1 150ML.BAG IVPB STA (23:12)
[2019-08-25 23:37] VITALS: BMI 24.7
[2019-08-26] MEDS ORDERED: HYDROmorphone 1 MG/ML 1 ML SYRINGE IM PRN (03:27)
[2019-08-26] MEDS: HYDROmorphone 1 MG/ML 1 ML SYRINGE IVP PRN ×6 (03:37→22:48)
[2019-08-26] MEDS: NICOTINE 21MG/24HR PATCH TRANSDERM SCH (07:16)
--- NOTE | 2019-08-26 08:32 | P.GSHP ---
<Colette Alfonso A - Last Filed: 08/26/19 08:28> History of Present Illness H&P Date: 08/26/19 Chief Complaint: abdominal pain CHIEF COMPLAINT: Abdominal pain HISTORY OF PRESENT ILLNESS: 58 year old male who presented to the ER with a chief complaint of abdominal pain. Patient states he was feeling well yesterday morning and went to work. Around 1400, he began to have severe right lower quadrant abdominal pain. Patient states he thought he just had a stomachache so he went to lay down for a few hours. When he woke up he states the pain was more severe in intensity. He denies fever or chills. Denies diarrhea or constipation. Denies nausea or vomiting. Patient currently rating his pain 5 out of 10 and is tolerable with IV narcotics. PAST MEDICAL HISTORY: See list. PAST SURGICAL HISTORY: See list. SOCIAL HISTORY: No illicit drug use. REVIEW OF SYSTEMS: CONSTITUTIONAL: Denies fever or chills. HEENT: Denies blurred vision, vision changes, or eye pain. Denies hemoptysis CARDIOVASCULAR: Denies chest pain or pressure. RESPIRATORY: No shortness of breath. GASTROINTESTINAL: Refer to HPI for pertinent findings HEMATOLOGIC: Denies bleeding disorders. GENITOURINARY: Denies any blood in urine. SKIN: Denies pruitis. Denies rash. PHYSICAL EXAM: VITAL SIGNS: Reviewed. GENERAL: Well-developed in no acute distress. HEENT: No sclera icterus. Extraocular movements grossly intact. Moist buccal mucosa. Head is atraumatic, normocephalic. ABDOMEN: Soft. Nondistended. Tenderness on palpation of right lower quadrant. NEUROLOGIC: Alert and oriented. Cranial nerves II through XII grossly intact. LABORATORY DATA: WBC 12.0. Hemoglobin 15.4. Platelet count 236. IMAGING: CT abdomen and pelvis: Dilated fluid-filled appendix suggestive of appendicitis. No abscess. ASSESSMENT: 1. Abdominal pain 2. Acute appendicitis 3. Leukocytosis PLAN: 1. Nothing by mouth. Continue IV fluids 2. Continue antibiotics. Currently on Levaquin. Monitor WBC 3. Pain control 4. Patient to undergo laparoscopic appendectomy today with Dr. Mahmood. Nurse practitioner note has been reviewed by physician. Signing provider agrees with the documented findings, assessment, and plan of care. Past Medical History Past Medical History: No Reported History History of Any Multi-Drug Resistant Organisms: None Reported Past Surgical History: Hernia Repair Past Anesthesia/Blood Transfusion Reactions: No Reported Reaction Past Psychological History: No Psychological Hx Reported Smoking Status: Current every day smoker Past Alcohol Use History: Daily Past Drug Use History: Marijuana Medications and Allergies Home Medications Medication Instructions Recorded Confirmed Type No Known Home Medications 08/25/19 08/25/19 History Allergies Allergy/AdvReac Type Severity Reaction Status Date / Time Penicillins Allergy Anaphylaxis Verified 08/25/19 22:55 Surgical - Exam Vital Signs Temp Pulse Resp BP Pulse Ox 98.7 F 74 22 144/87 96 08/25/19 20:11 08/25/19 20:11 08/25/19 20:11 08/25/19 20:11 08/25/19 20:11 Results - Labs 08/25/19 21:00 08/25/19 21:00 Abnormal Lab Results - Last 24 Hours (Table) 08/25/19 08/25/19 08/25/19 Range/Units 21:00 21:00 22:10 WBC 12.0 H (3.8-10.6) k/uL Neutrophils # 10.1 H (1.3-7.7) k/uL Glucose 122 H (74-99) mg/dL Ur Specific [place] 1.041 H (1.001-1.035) Diabetes panel 08/25/19 Range/Units 21:00 Sodium 139 (137-145) mmol/L Potassium 4.1 (3.5-5.1) mmol/L Chloride 106 (98-107) mmol/L Carbon Dioxide 24 (22-30) mmol/L BUN 10 (9-20) mg/dL Creatinine 0.87 (0.66-1.25) mg/dL Glucose 122 H (74-99) mg/dL Calcium 9.9 (8.4-10.2) mg/dL AST 24 (17-59) U/L ALT 23 (21-72) U/L Alkaline Phosphatase 81 (38-126) U/L Total Protein 7.8 (6.3-8.2) g/dL Albumin 4.4 (3.5-5.0) g/dL Calcium panel 08/25/19 Range/Units 21:00 Calcium 9.9 (8.4-10.2) mg/dL Albumin 4.4 (3.5-5.0) g/dL Pituitary panel 08/25/19 Range/Units 21:00 Sodium 139 (137-145) mmol/L Potassium 4.1 (3.5-5.1) mmol/L Chloride 106 (98-107) mmol/L Carbon Dioxide 24 (22-30) mmol/L BUN 10 (9-20) mg/dL Creatinine 0.87 (0.66-1.25) mg/dL Glucose 122 H (74-99) mg/dL Calcium 9.9 (8.4-10.2) mg/dL Adrenal panel 08/25/19 Range/Units 21:00 Sodium 139 (137-145) mmol/L Potassium 4.1 (3.5-5.1) mmol/L Chloride 106 (98-107) mmol/L Carbon Dioxide 24 (22-30) mmol/L BUN 10 (9-20) mg/dL Creatinine 0.87 (0.66-1.25) mg/dL Glucose 122 H (74-99) mg/dL Calcium 9.9 (8.4-10.2) mg/dL Total Bilirubin 0.9 (0.2-1.3) mg/dL AST 24 (17-59) U/L ALT 23 (21-72) U/L Alkaline Phosphatase 81 (38-126) U/L Total Protein 7.8 (6.3-8.2) g/dL Albumin 4.4 (3.5-5.0) g/dL <Eric Mahmood - Last Filed: 08/26/19 11:32> History of Present Illness As above. Patient with CAT scan findings of acute appendicitis. Remains tender right lower quadrant. Continue IV antibiotics. Will proceed with laparoscopic, possible open appendectomy at this time. Risks of bleeding, infection, abscess, staple line dehiscence, duodenal bladder and bowel injury, ureteral injury, hernia, conversion to an open procedure reviewed. He understands and wishes to proceed. Surgical - Exam Vital Signs Temp Pulse Resp BP Pulse Ox 98.7 F 74 22 144/87 96 08/25/19 20:11 08/25/19 20:11 08/25/19 20:11 08/25/19 20:11 08/25/19 20:11 Results - Labs 08/25/19 21:00 08/25/19 21:00 Abnormal Lab Results - Last 24 Hours (Table) 08/25/19 08/25/1908/25/19 Range/Units 21:00 21:00 22:10 WBC 12.0 H (3.8-10.6) k/uL Neutrophils # 10.1 H (1.3-7.7) k/uL Glucose 122 H (74-99) mg/dL Ur Specific [place] 1.041 H (1.001-1.035) Diabetes panel 08/25/19 Range/Units 21:00 Sodium 139 (137-145) mmol/L Potassium 4.1 (3.5-5.1) mmol/L Chloride 106 (98-107) mmol/L Carbon Dioxide 24 (22-30) mmol/L BUN 10 (9-20) mg/dL Creatinine 0.87 (0.66-1.25) mg/dL Glucose 122 H (74-99) mg/dL Calcium 9.9 (8.4-10.2) mg/dL AST 24 (17-59) U/L ALT 23 (21-72) U/L Alkaline Phosphatase 81 (38-126) U/L Total Protein 7.8 (6.3-8.2) g/dL Albumin 4.4 (3.5-5.0) g/dL Calcium panel 08/25/19 Range/Units 21:00 Calcium 9.9 (8.4-10.2) mg/dL Albumin 4.4 (3.5-5.0) g/dL Pituitary panel 08/25/19 Range/Units 21:00 Sodium 139 (137-145) mmol/L Potassium 4.1 (3.5-5.1) mmol/L Chloride 106 (98-107) mmol/L Carbon Dioxide 24 (22-30) mmol/L BUN 10 (9-20) mg/dL Creatinine 0.87 (0.66-1.25) mg/dL Glucose 122 H (74-99) mg/dL Calcium 9.9 (8.4-10.2) mg/dL Adrenal panel 08/25/19 Range/Units 21:00 Sodium 139 (137-145) mmol/L Potassium 4.1 (3.5-5.1) mmol/L Chloride 106 (98-107) mmol/L Carbon Dioxide 24 (22-30) mmol/L BUN 10 (9-20) mg/dL Creatinine 0.87 (0.66-1.25) mg/dL Glucose 122 H (74-99) mg/dL Calcium 9.9 (8.4-10.2) mg/dL Total Bilirubin 0.9 (0.2-1.3) mg/dL AST 24 (17-59) U/L ALT 23 (21-72) U/L Alkaline Phosphatase 81 (38-126) U/L Total Protein 7.8 (6.3-8.2) g/dL Albumin 4.4 (3.5-5.0) g/dL
[2019-08-26] MEDS ORDERED: IV FLUID CONTINUATION 1,000 ML IV ONE (10:16)
[2019-08-26] MEDS ORDERED: ONDANSETRON 4 MG/2 ML VIAL IVP ONE (10:30)
[2019-08-26] MEDS ORDERED: NEOSTIGMINE 1 MG/ML 10 ML VIAL ONE (11:54)
[2019-08-26] MEDS ORDERED: MIDAZOLAM 2 MG/2 ML VIAL ONE (11:54)
[2019-08-26] MEDS ORDERED: GLYCOPYRROLATE 0.2 MG/ML 2 ML VIAL ONE (11:54)
[2019-08-26] MEDS ORDERED: PROPOFOL 10 MG/ML 20 ML VIAL IV ONE (11:54)
[2019-08-26] MEDS ORDERED: LIDOCAINE 1% INJ 10MG/ML (20 ML MDV) ONE (11:54)
[2019-08-26] MEDS ORDERED: fentaNYL (PF) 50 MCG/ML 2 ML AMP ONE (11:54)
[2019-08-26] MEDS ORDERED: BUPIVACAINE (PF) 0.25% 30 ML VIAL SQ ONE ×3 (12:18→12:20)
[2019-08-26] MEDS ORDERED: LACTATED RINGERS 1,000 ML IV ONE ×2 (12:23)
--- NOTE | 2019-08-26 13:04 | P.OP ---
Date of Procedure: 08/26/19 Procedure(s) Performed: PREOPERATIVE DIAGNOSIS: Acute appendicitis POSTOPERATIVE DIAGNOSIS: Gangrenous appendicitis PROCEDURE: Laparoscopic appendectomy SURGEON: Ela EBL: Minimal ANESTHESIA: General COMPLICATIONS: None OPERATIVE PROCEDURE: The patient was brought and placed on the operating table in the supine position. The patient was placed under general anesthesia. The abdomen was prepped and draped in the usual sterile fashion. A small vertical infraumbilical incision was made. The fascia was retracted anteriorly with Mary forceps. The Veress needle was advanced into the peritoneal cavity. The saline drop test was normal. Insufflation took place to 15 mmHg. A 5 mm trocar was then placed. An additional 5 mm suprapubic trocar was placed under direct visualization as well as a 12 mm left lower quadrant trocar under direct visualization. The appendix was inspected. It was acutely inflamed. There were gangrenous changes without perforation. The mesoappendix was dissected. The base of the appendix was divided using a linear 45 mm intestinal stapler. The mesentery itself was I did using the LigaSure device. The area was then irrigated. No further purulence or bleeding was seen. The appendix was brought out of the peritoneal cavity through the left lower quadrant trocar site with an Endo Catch bag. The fascia at the 12 mm site was closed using a [id number] 0 Vicryl stitch. The skin at all 3 sites was closed using 4-0 Monocryl sutures. Skin glue was then applied. DISPOSITION: Stable to recovery room
[2019-08-26] MEDS ORDERED: LORazepam 2 MG/ML INJ IV PRN ×3 (13:48)
[2019-08-26] MEDS: SODIUM CHLORIDE 0.9% 1,000 ML IV SCH (14:04)
[2019-08-26] MEDS: HYDROcodone/APAP 7.5-325MG 1 EACH TAB PO PRN (19:16)
[2019-08-26] MEDS ORDERED: LEVOFLOXACIN 500MG-D5W PMX 500 MG in DEXTROSE/WATER 1 100ML.BAG IVPB SCH (23:00)
[2019-08-27] MEDS: HYDROcodone/APAP 7.5-325MG 1 EACH TAB PO PRN ×2 (01:15→06:28)
[2019-08-27 04:42] VITALS: BP 118/65; PULSE 74; RESP 16; TEMP 98.8
[2019-08-27] MEDS: HYDROmorphone 1 MG/ML 1 ML SYRINGE IVP PRN (05:04)
[2019-08-27] MEDS: NICOTINE 21MG/24HR PATCH TRANSDERM SCH (08:05)
[2019-08-27] MEDS ORDERED: HYDROcodone/APAP 7.5-325MG 1 EACH TAB PO PRN (09:04)
[2019-08-27] MEDS: SODIUM CHLORIDE 0.9% 1,000 ML IV SCH (09:14)
--- NOTE | 2019-08-27 09:46 | P.DS ---
Providers Date of admission: 08/26/19 15:35 Expected date of discharge: 08/27/19 Attending physician: Eric Mahmood Primary care physician: Stated None - Discharge Diagnosis(es) (1) Gangrenous appendicitis Patient doing better today. Pain is improved. He would like to go home. T-max 100. Tolerating diet. Outpatient follow-up 1 week. Scription for Levaquin and Craig provided. Current Visit: Yes Status: Acute Patient Condition at Discharge: Stable Plan - Discharge Summary New Discharge Prescriptions: New Hydrocodone/Acetaminophen [Craig 5-325] 1 tab PO Q6HR PRN 3 Days #12 tab PRN Reason: Pain Levofloxacin [Levaquin] 500 mg PO DAILY #7 tab Discharge Medication List Hydrocodone/Acetaminophen [Craig 5-325] 1 tab PO Q6HR PRN 3 Days #12 tab 08/26/19 [Rx] Levofloxacin [Levaquin] 500 mg PO DAILY #7 tab 08/26/19 [Rx] Follow up Appointment(s)/Referral(s): Eric Mahmood MD [Medical Doctor] - 1 Week None,Stated [Primary Care Provider] - 1-2 days Patient Instructions/Handouts: Laparoscopic Appendectomy (DC)
== END 2019-08-27 11:29 | disposition home or self-care (01) | DRG 343 ==
LOC: EC 19:44 → 4MS4W 22:34 → OBSVTOIN 08-26 15:35
PROVIDERS: ADMIT Surgery; ATTEND Surgery
PROC: 0DTJ4ZZ Resection of Appendix, Percutaneous Endoscopic Approach (ICD-10-PCS; principal; 2019-08-26 10:40)
DX: K35.891 Other acute appendicitis without perforation, with gangrene (principal); F17.200 Nicotine dependence, unspecified, uncomplicated; Z98.890 Other specified postprocedural states; Z88.0 Allergy status to penicillin
CPT/HCPCS: 36415; 74177; 80053; 81003; 82150; 83605; 83690; 85025; 85610; 85730; 88304; 96361; 96374; 96375; 96376; 99285

== ENCOUNTER 2022-03-11 18:22 | Emergency (ER) | payer BC ==
[2022-03-11 21:09] VITALS: RESP 18; TEMP 97.6
--- NOTE | 2022-03-11 21:52 | XR ---
EXAMINATION TYPE: XR chest 2V DATE OF EXAM: 03/11/2022 COMPARISON: NONE HISTORY: Left arm swelling TECHNIQUE: 2 views FINDINGS: Heart and mediastinum are normal. Lungs are clear. Diaphragm is normal. There are some emph ysematous changes in the upper lobes. Bony thorax is intact IMPRESSION: No active cardiopulmonary disease. Normal heart.
--- NOTE | 2022-03-11 21:54 | US ---
EXAMINATION TYPE: US venous doppler duplex UE RT DATE OF EXAM: 03/11/2022 COMPARISON: NONE CLINICAL HISTORY: swelling. Right arm numbness SIDE PERFORMED: Right Right Arm: Negative for DVT IMPRESSION: No sign of deep vein thrombosis in the right arm.
--- NOTE | 2022-03-11 22:08 | ED ---
Extremity Problem HPI - General Chief complaint: Extremity Problem,Nontraumatic Stated complaint: Arm pain/numbness Time Seen by Provider: 03/11/22 21:52 Source: patient, RN notes reviewed Mode of arrival: ambulatory - History of Present Illness Initial comments: This is a pleasant 7-year-old male who presents to [facility], complaining of weakness and tingling to his right arm with a cold feeling. Patient states this started about 6 PM Thursday night after he was mowing lawn on a riding lawnmower. Patient noticed that he had weakness in the right hand, difficulty extending the wrist and spreading his fingers apart. He now notices that he has a tingling sensation which has progressed from the hand up to the upper arm. He also states his arm feels cold. Patient denies any other symptomology. States she feels fine otherwise. Has no significant past medical history. Patient is a cigarette smoker and occasional alcohol drinker. Positive history and cardiovascular disease and diabetes in his father. No headache, no fever or chills, no changes in vision or hearing, no sore throat or difficulty with speech, no neck pain, no chest pain or shortness of breath, no abdominal pain, no nausea or vomiting, no changes in urination or bowel movements, no extremity pain, no skin rashes or lesions. Patient has had no injury or immobilization. - Related Data Home Medications Medication Instructions Recorded Confirmed No Known Home Medications 03/11/22 03/11/22 Allergies Allergy/AdvReac Type Severity Reaction Status Date / Time Penicillins Allergy THROAT Verified 03/11/22 22:51 SWELLING Review of Systems ROS Statement: Those systems with pertinent positive or pertinent negative responses have been documented in the HPI. ROS Other: All systems not noted in ROS Statement are negative. Past Medical History Past Medical History: No Reported History History of Any Multi-Drug Resistant Organisms: None Reported Past Surgical History: Hernia Repair Past Anesthesia/Blood Transfusion Reactions: No Reported Reaction Past Psychological History: No Psychological Hx Reported Smoking Status: Current every day smoker Past Alcohol Use History: Daily Past Drug Use History: Marijuana General Exam General appearance: alert, in no apparent distress Head exam: Present: atraumatic, normocephalic, normal inspection Eye exam: Present: normal appearance, PERRL, EOMI. Absent: scleral icterus, conjunctival injection, periorbital swelling ENT exam: Present: normal exam, mucous membranes moist Neck exam: Present: normal inspection. Absent: tenderness, meningismus, lymphadenopathy Respiratory exam: Present: normal lung sounds bilaterally. Absent: respiratory distress, wheezes, rales, rhonchi, stridor Cardiovascular Exam: Present: regular rate, normal rhythm, normal heart sounds. Absent: systolic murmur, diastolic murmur, rubs, gallop, clicks GI/Abdominal exam: Present: soft, normal bowel sounds. Absent: distended, tenderness, guarding, rebound, rigid Extremities exam: Present: normal inspection, normal capillary refill. Absent: tenderness, pedal edema, joint swelling, calf tenderness Right Shoulder Exam: Present: normal inspection, full ROM. Absent: tenderness Upper Arm exam: Present: normal inspection. Absent: tenderness, swelling Elbow exam: Present: normal inspection, full ROM. Absent: tenderness, swelling Forearm Wrist exam: Present: other (Method the patient's entire arm and hand feel cool to touch when compared to the left. However, pulses are 2+ out of 4, capillary refill is normal). Absent: normal inspection, full ROM (Patient has difficulty with wrist extension.), tenderness, swelling, abrasion, laceration, ecchymosis, deformity, crepitus, dislocation, erythema, tenderness over anatomical snuff box, pain with axial thumb loading Hand Wrist exam: Present: normal inspection. Absent: full ROM (Difficulty with finger abduction, opposition presents some difficulty but appears to be intact.), deformity, crepitus, dislocation, erythema Neuro motor exam: Present: thumb opposition intact, thumb IP flexion intact, other (Vision appears to have some combination of C6, C7, possibly C5 nerve irritation right arm. Diminished sensation to pinprick and 2. discrimination in the C6-C7 dermatome.). Absent: wrist extension intact, fingers 2-5 abduction intact Neurosensory exam: Absent: radial nerve intact (Patient has some weakness with wrist extension suggesting possible radial nerve compression) Vascular: Present: normal capillary refill. Absent: vascular compromise, Pallo, pulse deficit radial art, pulse deficit ulnar art Back exam: Present: normal inspection Neurological exam: Present: alert, oriented X3, CN II-XII intact. Absent: alter ed, reflexes normal Psychiatric exam: Present: normal affect, normal mood Skin exam: Present: warm, dry, intact, normal color. Absent: rash Course Vital Signs 03/11/22 21:06 Temperature 97.6 F Pulse Rate 71 Respiratory 18 Rate Blood Pressure 159/86 O2 Sat by Pulse 98 Oximetry Procedures - Orthopedic Splinting/Casting Injury #1 Side: right Upper Extremity Injury Location: short arm, wrist Upper Extremity Immobilizer: volar splint (Short arm), Jose C wrap, synthetic pre- padded splint Additional Comments: Neurovascular status intact Medical Decision Making - Medical Decision Making Patient presents with what appears to be a peripheral neuropathy issue. Patient having sensory disturbance in a stocking glove type distribution to the right arm progressing proximal to the elbow. Patient has difficulty with wrist extension and finger abduction. Arm is cool to touch but appears to have good vascular flow with normal pulses and capillary refill. Would add on a CT that was appears to be peripheral in nature. Patient's workup here is negative. Negative chest x-ray, venous Doppler, and CT of the brain. Patient's presenting symptoms consistent with right radial nerve palsy, possibly some overlap into other motor/dermatomal areas. The case was discussed in detail with ED attending physician. Presentation, findings, treatment plan discussed in detail. We'll send the patient to neurology. Patient will likely need further evaluation such as an EMG Supervising physicians Dr. Mirza Short arm volar splint and crafted by me for the patient to use at night. - Lab Data Result diagrams: 03/11/22 22:26 03/11/22 22:26 Lab Results 03/11/22 03/11/22 Range/Units 22:26 22:26 WBC 10.2 (3.8-10.6) k/uL RBC 5.48 (4.30-5.90) m/uL Hgb 17.5 (13.0-17.5) gm/dL Hct 53.4 H (39.0-53.0) % MCV 97.4 (80.0-100.0) fL MCH 31.9 (25.0-35.0) pg MCHC 32.8 (31.0-37.0) g/dL RDW 12.5 (11.5-15.5) % Plt Count 206 (150-450) k/uL MPV 7.3 Neutrophils % 72 % Lymphocytes % 18 % Monocytes % 5 % Eosinophils % 2 % Basophils % 1 % Neutrophils # 7.4 (1.3-7.7) k/uL Lymphocytes # 1.9 (1.0-4.8) k/uL Monocytes # 0.6 (0-1.0) k/uL Eosinophils # 0.2 (0-0.7) k/uL Basophils # 0.1 (0-0.2) k/uL Sodium 139 (137-145) mmol/L Potassium 3.7 (3.5-5.1) mmol/L Chloride 103 (98-107) mmol/L Carbon Dioxide 29 (22-30) mmol/L Anion Gap 7 mmol/L BUN 12 (9-20) mg/dL Creatinine 0.98 (0.66-1.25) mg/dL Est GFR (CKD-EPI)AfAm >90 (>60 ml/min/1.73 sqM) Est GFR (CKD-EPI)NonAf 84 (>60 ml/min/1.73 sqM) Glucose 101 H (74-99) mg/dL Calcium 8.9 (8.4-10.2) mg/dL Total Bilirubin 0.8 (0.2-1.3) mg/dL AST 19 (17-59) U/L ALT 16 (4-49) U/L Alkaline Phosphatase 65 (38-126) U/L Total Protein 7.7 (6.3-8.2) g/dL Albumin 4.2 (3.5-5.0) g/dL - Radiology Data Radiology results: report reviewed, image reviewed Disposition Clinical Impression: Wrist drop, right wrist, Acute radial nerve palsy of right upper extremity Disposition: HOME SELF-CARE Condition: Good Instructions (If sedation given, give patient instructions): Radial Nerve Palsy (ED) Additional Instructions: Patient was told to return to the ER for any signs or symptoms worsen. Told to return immediately if any other problems arise. All questions answered. Treatment plan discussed. Patient in agreement Every effort has been made to ensure accuracy of this dictation. However, due to the limitations of electronic medical records and dictation devices, errors in charting still occur. With the splint as directed. He can take it on and off. Wear it at night. Is patient prescribed a controlled substance at d/c from ED?: No Referrals: Kendra Aden MD [Medical Doctor] - As Soon As Possible Time of Disposition: 23:25
--- NOTE | 2022-03-11 22:37 | CT ---
EXAMINATION TYPE: CT brain wo con DATE OF EXAM: 03/11/2022 COMPARISON: None HISTORY: numbness CT DLP: 1096.4 mGycm Automated exposure control for dose reduction was used. Images obtained of the brain without contrast. Ventricles of normal size. There is no mass effect or midline shift. There is no sign of intracranial hemorrhage. There are some minimal white matter hypodensity in the left temporal and parietal lobe. Calvarium is intact. Skull base is intact. There is normal aeration of the mastoid sinuses. IMPRESSION: There is evidence for some chronic small vessel ischemia in the left posterior temporal parietal lobe . No hemorrhage.
[2022-03-11 22:39] LABS: Basophils # (A) 0.1 k/uL (0-0.2); Basophils % (A) 1 %; Eosinophils # (A) 0.2 k/uL (0-0.7); Eosinophils % (A) 2 %; HCT 53.4 % (39.0-53.0); HGB 17.5 gm/dL (13.0-17.5); Lymphocytes # (A) 1.9 k/uL (1.0-4.8); Lymphocytes % (A) 18 %; MCH 31.9 pg (25.0-35.0); MCHC 32.8 g/dL (31.0-37.0); MCV 97.4 fL (80.0-100.0); Mean Platelet Volume 7.3; Monocytes # (A) 0.6 k/uL (0-1.0); Monocytes % (A) 5 %; Neutrophils # (A) 7.4 k/uL (1.3-7.7); Neutrophils % (A) 72 %; Platelet Count 206 k/uL (150-450); RBC 5.48 m/uL (4.30-5.90); RDW 12.5 % (11.5-15.5); WBC 10.2 k/uL (3.8-10.6)
[2022-03-11 22:50] LABS: ALT 16 U/L (4-49); AST 19 U/L (17-59); African American GFR (CKD) >90 (>60 ml/min/1.73 sqM); Albumin 4.2 g/dL (3.5-5.0); Alkaline Phosphatase 65 U/L (38-126); Anion Gap 7 mmol/L; Blood Urea Nitrogen 12 mg/dL (9-20); Calcium 8.9 mg/dL (8.4-10.2); Carbon Dioxide 29 mmol/L (22-30); Chloride 103 mmol/L (98-107); Glucose 101 mg/dL (74-99); Non-African American GFR(CKD) 84 (>60 ml/min/1.73 sqM); Potassium 3.7 mmol/L (3.5-5.1); Sodium 139 mmol/L (137-145); Total Bilirubin 0.8 mg/dL (0.2-1.3); Total Protein 7.7 g/dL (6.3-8.2)
[2022-03-11 23:41] VITALS: BP 142/76; PULSE 69
== END 2022-03-11 23:41 | disposition home or self-care (01) ==
LOC: EC 18:22
DX: G56.31 Lesion of radial nerve, right upper limb (principal); M21.331 Wrist drop, right wrist; F17.210 Nicotine dependence, cigarettes, uncomplicated; Z88.0 Allergy status to penicillin
CPT/HCPCS: 29125; 36415; 70450; 71046; 80053; 85025; 99284